=== PATIENT | female | born 1940 | race Caucasian/White ===

== ENCOUNTER 2017-01-01 09:35 | Day surgery (SDC) | payer MEDICARE, OTHER ==
--- NOTE | ~2017-01-01 | EGD ---
EGD REPORT [facility] [address] [id number] NAME: TC RUIZ : 40 STATUS : REG [facility] [place]#: [id number] AGE: 76 ADM/REG DATE : 01/01/17 MR#: [id number] REPORT SERV DATE: 01/01/17 DICTATED BY: ABDIRAHMAN GOMEZ DATE: 01/01/17 REPORT STATUS : Draft TRANSCRIBED BY: [facility] DATE: 01/01/17 [facility] Center Patient Name: Tc Ruiz Date of : 1940 Attending MD: ABDIRAHMAN GOMEZ MD Procedure Date No Time: 01/01/2017 Procedure: Colonoscopy Indications: High risk colon cancer surveillance: Personal history of colon cancer, Last colonoscopy: 2010 Referring MD: Zoltan Galindo Medicines: See the Anesthesia note for documentation of the administered medications Complications: No immediate complications. Procedure: Pre-Anesthesia Assessment: - ASA Grade Assessment: III - A patient with severe systemic disease. After I obtained informed consent, the scope was passed under direct vision. Throughout the procedure, the patient's blood pressure, pulse, and oxygen saturations were monitored continuously. The PCF [id number] was introduced through the anus and advanced to the cecum, identified by appendiceal orifice and ileocecal valve. The colonoscopy was performed without difficulty. The patient tolerated the procedure well. The quality of the bowel preparation was adequate. Findings: The perianal and digital rectal examinations were normal. Internal hemorrhoids were found during retroflexion. Diverticula were found in the sigmoid colon. Normal colocolo anastomosis A sessile polyp was found in the sigmoid colon. The polyp was small in size. The polyp was removed with a cold biopsy forceps. Resection and retrieval were complete. A sessile polyp was found in the rectum. The polyp was small in size. The polyp was removed with a cold biopsy forceps. Resection and retrieval were complete. Impression: - Internal hemorrhoids. - Diverticulosis in the sigmoid colon. - Normal colocolo anastomosis - One small polyp in the sigmoid colon. Resected and retrieved. - One small polyp in the rectum. Resected and retrieved. EGD REPORT [address] [address] NAME: TC RUIZ : 40 STATUS : REG [facility] PAT#: [id number] AGE: 76 ADM/REG DATE : 01/01/17 MR#: [id number] REPORT SERV DATE: 01/01/17 DICTATED BY: ABDIRAHMAN GOMEZ DATE: 01/01/17 REPORT STATUS : Draft TRANSCRIBED BY: [employer] DATE: 01/01/17 Recommendation: - Patient has a contact number available for emergencies. The signs and symptoms of potential delayed complications were discussed with the patient. Return to normal activities tomorrow. Written discharge instructions were provided to the patient. - Regular diet. - Continue present medications. - Repeat colonoscopy is not recommended for surveillance. - FOR YOUR BIOPSY RESULTS: Please go to [email or web address] and register to receive your results via the portal. Your biopsy results will be posted there in about 7 to 10 days. IF you do not see result in 10 days, call office. Procedure Code(s): --- Professional --- 77033, Colonoscopy, flexible, proximal to splenic flexure; with biopsy, single or multiple Diagnosis Code(s): --- Professional --- K64.8, Other hemorrhoids K57.30, Diverticulosis of large intestine without perforation or abscess without bleeding K62.1, Rectal polyp D12.5, Benign neoplasm of sigmoid colon Z85.038, Personal history of other malignant neoplasm of large intestine CPT copyright 2013 [employer]. All rights reserved. The codes documented in this report are preliminary and upon station mechanic apprentice review may be revised to meet current compliance requirements. Abdirahman Gomez MD ABDIRAHMAN GOMEZ MD 01/01/2017 11:16 AM This report has been signed electronically. Number of Addenda: 0 Note Initiated On: 01/01/2017 10:49 AM Scope Withdrawal Time 0 hours 9 minutes 44 seconds [id number] [place] [id number]
[~2017-01-01 09:35] MED LIST: ADVIL PO; AT25 PO; ATEN50 PO; ATV1 PO; CALTRA600D PO; KLOR-CON 1010 MEQ PO; LIPITOR10 PO; MAG OXIDE250 MG PO; MAX25 PO; NEUR300 PO; PRILOSEC40 MG PO; PROBIOTIC PO; ULTRAM50 PO
[2017-01-01 10:09] LABS: BUN (BLOOD UREA NITROGEN) 9 MG/DL (6-23); CALCIUM, SERUM 9.2 MG/DL (8.5-10.4); CHLORIDE, SERUM 99 MMOL/L (96-112); CO2 (CARBON DIOXIDE) 33 MMOL/L (24-34); CREATININE 0.82 MG/DL (0.55-1.02); GFR AFRICAN AMERICAN 81 ML/MIN (>=60); GFR NON AFRICAN AMERICAN 70 ML/MIN (>=60); GLUCOSE, SERUM 89 MG/DL (60-99); POTASSIUM, SERUM 3.1 MMOL/L (3.5-5.3); SODIUM, SERUM 139 MMOL/L (135-148)
== END 2017-01-01 23:59 | disposition home health service (06) ==
LOC: DMU 09:35
PROVIDERS: Internal Medicine Gastroenterology
PROC: 0DBP8ZX Excision of Rectum, Via Natural or Artificial Opening Endoscopic, Diagnostic (ICD-10-PCS; 2017-01-01)
PROC: 0DBN8ZX Excision of Sigmoid Colon, Via Natural or Artificial Opening Endoscopic, Diagnostic (ICD-10-PCS; principal; 2017-01-01 11:30)
DX: Z12.11 Encounter for screening for malignant neoplasm of colon (principal); K63.5 Polyp of colon; K62.1 Rectal polyp; K64.8 Other hemorrhoids; K57.30 Diverticulosis of large intestine without perforation or abscess without bleeding; I10 Essential (primary) hypertension; E78.00 Pure hypercholesterolemia, unspecified; F41.9 Anxiety disorder, unspecified; K21.9 Gastro-esophageal reflux disease without esophagitis; M19.90 Unspecified osteoarthritis, unspecified site; F17.210 Nicotine dependence, cigarettes, uncomplicated; Z88.8 Allergy status to other drugs, medicaments and biological substances; Z98.41 Cataract extraction status, right eye; Z98.42 Cataract extraction status, left eye; Z96.1 Presence of intraocular lens; Z90.710 Acquired absence of both cervix and uterus; Z98.890 Other specified postprocedural states; Z85.038 Personal history of other malignant neoplasm of large intestine
CPT/HCPCS: 80048; 88305